=== PATIENT | female | born 2000 | race Caucasian/White ===

== ENCOUNTER 2019-01-29 09:54 | Observation (INO) ==
[2019-01-29] MEDS ORDERED: TORADOL IV ONE (11:32)
[2019-01-29 11:53] LABS: URINE SOURCE CLEAN CATCH
[2019-01-29 12:02] LABS: BASO# 0.02 X1000 (0.0-0.2); BASO% 0.3 % (0.0-0.8); EOS# 0.05 X1000 (0.0-0.7); EOS% 0.7 % (0.0-10.0); HEMATOCRIT 44.2 % (37.0-47.0); HEMOGLOBIN 14.2 g/dL (12.0-16.0); IMM GRAN# 0.03 X1000 (0.0-0.04); IMM GRAN% 0.4 % (0.0-0.5); LYMPH# 1.32 X1000 (1.2-3.4); LYMPH% 19.7 % (20.5-51.1); MCHC 32.1 g/dL (33-37); MONO# 0.77 X1000 (0.11-0.59); MONO% 11.5 % (1.7-9.3); MPV 8.7 FL (7.4-10.4); NEUT# 4.52 X1000 (1.4-6.5); NEUT% 67.4 % (42.2-75.2); PLT 306 X1000 (130-400); RBC 5.26 XMIL (4.2-5.4); RDW 12.9 % (11.5-14.5); WBC 6.71 X1000 (4.8-10.8)
[2019-01-29 12:18] LABS: BILIRUBIN URINE NEGATIVE (NEGATIVE); BLOOD URINE NEGATIVE (NEGATIVE); COLOR YELLOW; GLUCOSE URINE NEGATIVE (NEGATIVE); KETONE URINE NEGATIVE (NEGATIVE); LEUKOCYTES URINE NEGATIVE (NEGATIVE); NITRITE URINE NEGATIVE (NEGATIVE); PH URINE 6.5; PROTEIN URINE NEGATIVE (NEGATIVE); SP GRAVITY URINE 1.012; TURBIDITY URINE CLEAR (CLEAR); UROBILINOGEN URINE NORMAL (NORMAL)
[2019-01-29 12:28] LABS: AGAP 13; ALB/GLOB RATIO 1.5; ALBUMIN 4.6 g/dL (3.5-5.0); ALKALINE PHOSPHATASE 115 U/L (32-104); BUN 9 mg/dL (8-22); CALCIUM 9.5 mg/dL (8.8-10.2); CHLORIDE 97 mmol/L (98-107); COSMO 272; CREATININE 0.6 mg/dL (0.5-0.9); ESTIMATED GFR > 60; GLUCOSE 87 mg/dL (70-104); GOT 16 U/L (10-30); GPT 22 U/L (10-36); POTASSIUM 3.6 mmol/L (3.5-5.1); SODIUM 137 mmol/L (136-145); TCO2 27 mmol/L (25-35); TOTAL BILIRUBIN 0.59 mg/dL (0.20-1.00); TOTAL PROTEIN 7.6 g/dL (6.3-8.3)
[2019-01-29 12:45] LABS: UR EPITHELIAL CELLS <10 /HPF (<10); URINE BACTERIA NEGATIVE /HPF; URINE RBC <10 /HPF (<10); URINE WBC <10 /HPF (<10)
[2019-01-29 13:03] LABS: URINE CRYSTALS NONE SEEN
--- NOTE | 2019-01-29 13:44 | PROVIDER DOCUMENTATION ---
This chart was entered by Erica Freeman Scribe, acting as scribe for Lino Flower MD. HPI-Abdominal Pain/GI Problem - General Chief Complaint: Abdominal Pain Stated Complaint: UPPER ABD PAIN,HURTS TO BREATHE Time Seen by Provider: 01/29/19 10:29 Source: patient, family (mom) Allergies/Adverse Reactions: Patient Allergies Allergy/AdvReac Type Severity Reaction Status Date / Time ciprofloxacin [From Cipro] AdvReac RASH Verified 01/29/19 10:26 ciprofloxacin HCl * AdvReac RASH Verified 01/29/19 10:26 [From Cipro] Home Medications: Home Medication List Medication Instructions Recorded Confirmed Last Taken Type Amoxicillin/Pot Clavulanate 1 tab PO BID 01/29/19 01/29/19 01/29/19 History [Augmentin] Guaifen/Dextromethorphan/PE 1 tab PO TID PRN 01/29/19 01/29/19 01/29/19 History [Deconex Dmx 17.5-385-10 mg Tab] Olanzapine/Fluoxetine [Symbyax 1 cap PO DAILY 01/29/19 01/29/19 01/29/19 History 6/25 mg] - History of Present Illness-ABD Nature of Presenting Problems: 18yof presents to ED cc intermittent abdominal pain, nausea and diarrhea since yesterday. Mom is at bedside and reports herself started having diverticulitis at age 18 and is concerned that is what pt has. Pt does have hx of impaction. Pt is nontoxic and in no acute distress upon exam. Abdominal Pain Onset Location: reports: generalized abdomen Quality of Pain: reports: cramping Severity in ED: reports: mild, moderate Onset/Duration: reports: last night Timing: reports: still present Activities at Onset: reports: light activity Exposure to sick contacts?: No Modifying Factors: improves with: nothing Associated Symptoms: reports: diarrhea, nausea Last BM: this morning Similar Symptoms Previously?: No Recently seen or treated by another doctor?: No Review of Systems - Adult - REVIEW OF SYSTEMS - ADULT Constitutional: reports: see HPI. denies: chills, fever, fatique Eyes: reports: no symptoms reported Ears, Nose, Mouth & Throat: reports: no symptoms reported Cardiovascular: reports: no symptoms reported Respiratory: reports: no symptoms reported Gastrointestinal: reports: see HPI, abdominal pain, diarrhea, nausea. denies: vomiting Genitourinary: reports: see HPI. denies: dysuria, flank pain, hematuria Musculoskeletal: reports: no symptoms reported Integumentary: reports: no symptoms reported Neurological: reports: no symptoms reported Psychiatric: reports: no symptoms reported Endocrine: reports: no symptoms reported Hematologic/Lymphatic: reports: no symptoms reported Allergic/Immunologic: reports: no symptoms reported All Other Systems: Reviewed and Negative Past History - Adult - PAST MEDICAL HISTORY-ADULT Review of Records: reports: Nursing Assessment Review, Medications Reviewed, Social history reviewed & non-contributory. Major Childhood Illnesses: reports: denies history Cardiovascular: reports: denies history Respiratory: reports: denies history Gastrointestinal: reports: denies history Obstetrical/Gynecological: reports: denies history Genitourinary: reports: denies history Musculoskeletal: reports: denies history Neurological: reports: denies history Endocrine/Immune: reports: denies history Other Conditions: reports: denies history - IMMUNIZATION STATUS Childhood Immunizations: See Nurse Assessment Flu Vaccine: See Nurse Assessment - FAMILY HISTORY Family History: reviewed, not pertinent - SOCIAL HISTORY Smoking: denies Physical Exam-General - PHYSICAL EXAM-ADULT Initial Vital Signs Reviewed: Yes - CONSTITUTIONAL General Appearance: appears well, alert. negative: anxious, combative - EYES Eyes: PERRL/EOMI, pink conjunctivae - HEAD, EARS, NOSE, MOUTH & THROAT HENMT: normocephalic/atraumatic, moist mucous membranes. negative: angioedema - RESPIRATORY Respiratory: chest non-tender, lungs clear, normal breath sounds. negative: stridor - CARDIOVASCULAR Cardiovascular: normal peripheral pulses, regular rate, rhythm, no edema. negative: bradycardia, tachycardia - GASTROINTESTINAL (ABDOMEN) Abdominal Exam: normal bowel sounds, soft, no organomegaly, tenderness (increase d LLQ and LUQ). negative: distended - MUSCULOSKELETAL Back Exam: normal inspection, no CVA tenderness Extremity: normal inspection, normal capillary refill. negative: deformity - SKIN Integumentary: normal color. negative: diaphoresis, jaundice - PSYCHIATRIC Psych/Mental Status: normal mood/affect, oriented x 3. negative: anxious, disheveled Progress - PLAN OF CARE/RESULTS Progress/Plan/Lab Results: Vital Signs - 8 hr 01/29/19 10:10 Temperature 97.9 F Pulse Rate 117 H Respiratory Rate 18 Blood Pressure 129/85 O2 Sat by Pulse Oximetry 97 Bedside Urine ED: Urine Bedside Start: 01/29/19 11:30 Freq: Status: Active Protocol: Activity Type Activity Date Activity User E-Sign Co-Sign Detail Recorded Client Recorded Date Recorded By Document 01/29/19 11:30 [id number] 01/29/19 11:30 [id number] 01/29/19 11:30 Point of Care [Bedside Point of Care] -Lot # [id number] - Results Negative -Control Line Visible? Yes Orders Category Date Time Status CT ABD/PELVIS W/IV CONT ONLY [CT] Stat Exams 01/29/19 11:31 Ordered CBC WITH ELECTRONIC DIFF [HEME] Stat Lab 01/29/19 11:33 Ordered COMPREHENSIVE METABOLIC PANEL [CHEM] Stat Lab 01/29/19 11:33 Ordered UA NIMS W/REFLEX CULT [URINALYSIS] Stat Lab 01/29/19 11:33 Ordered Ketorolac [Toradol] Med 01/29/19 11:32 Discontinued 30 mg IV NOW ONE Result Diagrams: 01/29/19 11:22 01/29/19 11:22 - CONSULTS/PCP/HOSPITALIST Notification #1 *Consult/PCP/Hospitalist*: d/w Dr Benson Time Discussed: 14:22 Consult Disposition: Admit (advised, NPO, IVF's and Zofran) Departure - Departure Date of Disposition Decision: 01/29/19 Time of Disposition Decision: 14:38 DIAGNOSIS: Enteritis, Ileus, Intussusception of small bowel Disposition: ADMITTED INPATIENT 09 Certified Medical Emergency: Emergent Condition: Stable Additional Instructions: ED Follow Up Instructions: You have been treated by a care provider in the Emergency Department. These instructions are being provided to you so you can have an understanding of how to care for yourself upon discharge. Upon discharge from the Emergency Depart ment, you are responsible for making arrangements for follow-up care by a physician of your choice. Take all prescribed medications as directed. Return to the Emergency Department immediately for any new or worsening symptoms. You may call the Physician Referral phone number at [phone] to obtain a list of Physicians who are taking new patients. Referrals and Follow-Ups: None,PCP [Primary Care Provider] - - Critical Care Note This patient required my direct & personal management of CC.: No Attestation - Physician/ LEIDA Attestation Patient care was provided by Advanced Practice Provider:: No The physician spent face to face time with patient:: Yes Advanced Practice Provider documentation review:: Supervising physician onsite and consulted in the evaluation and care of this patient. The physician did have a face to face encounter with the patient. This chart was documented by the indicated scribe, (Erica Freeman Scribe) and accurately reflects the services I performed and decisions made by me, Lino Flower MD, as attested by the provider's signature.
--- NOTE | 2019-01-29 14:16 | Diag Imaging Result Doc PS360 ---
EXAM: CT ABD/PELVIS W/IV CONT ONLY INDICATION: Abd pain TECHNIQUE: This exam was performed using automated exposure control, adjustment of mA or kV according to patient size, and/or use of iterative reconstruction technique. COMPARISON: None. FINDINGS: There has been a prior cholecystectomy. The liver, spleen, pancreas, adrenal glands, kidneys, and urinary bladder are grossly unremarkable. The reproductive tract is unremarkable as imaged. There is evidence of a prior appendectomy. There are multiple fluid-filled loops of small bowel containing air-fluid levels and mild distention. These are nonspecific. Consider ileus, possibly related to enteritis. There does appear to be a small focal intussusception in the left upper quadrant on image 56 of series 3. No obvious leak mass is identified. These small focal intussusceptions are usually incidental and transient. Immediately distal to this focal intussusception, the small bowel is collapsed. However, there is still distention of several loops of small bowel in the lower abdomen distal to the intussusception. No free abdominal gas or free fluid is identified. IMPRESSION: 1.Several mildly distended loops of small bowel throughout the abdomen with air-fluid levels that are nonspecific. Consider ileus related to enteritis. 2.Focal intussusception involving a loop of small bowel in the left upper quadrant. Please see above discussion. Electronically signed by Errol Zhu 01/29/2019 2:14 PM
[2019-01-29] MEDS ORDERED: ZOFRAN IV ONE ×2 (14:36→17:20)
[2019-01-29] MEDS ORDERED: NS 1,000 ML IV ONE (14:36)
[2019-01-29] MEDS ORDERED: OFIRMEV 1000 MG/ISOTONIC SOLN 1,000 MG/100 ML BOTTLE IV PRN (18:34)
[2019-01-29] MEDS: LR 1,000 ML IV SCH (19:28)
[2019-01-29] MEDS: TORADOL IV PRN (19:28)
[2019-01-29] MEDS: ZOFRAN IV PRN (20:10)
--- NOTE | 2019-01-29 21:55 | HISTORY AND PHYSICAL ---
DATE: 01/29/2019 CHIEF COMPLAINT: Nausea with diarrhea. REASON FOR CONSULTATION: Enteritis and intussusception. HISTORY OF PRESENT ILLNESS: This 18-year-old female has a history of cholecystectomy and appendectomy, who presents with 24 to 48 hour history of diarrhea with nausea and decreased appetite. She has had some mild abdominal discomfort. 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 CT scan showed a focal intussusception with no evidence of compromise or obstruction, and some more dilated proximal loops distally. She denies any bleeding in her stools. No prior episodes. MEDICAL HISTORY: She has mood disorder. SURGICAL HISTORY: Appendectomy and cholecystectomy. SOCIAL HISTORY: She does smoke. She works at a daycare. Denies alcohol. She is here with her mother. FAMILY HISTORY: Reviewed. Some cancer noted in her grandfather. REVIEW OF SYSTEMS: A 10 point review of systems negative other than what is mentioned HPI. OBJECTIVE: General: She is afebrile, pulse 81, blood pressure 129/78, oxygen saturation 97%. General: She is alert, in no acute distress. HEENT: No scleral icterus. No cervical mass. Cardiovascular: Normal rate. Abdomen: Soft, nontender, nondistended. Integument: Warm and dry. Psychiatric: Appropriate affect. Neurologic: No gross deficits. Lymphatic: No cervical, axillary, or inguinal adenopathy. LABS: White count 6, hematocrit 44, platelets 306,000. Creatinine 0.6. LFTs are normal with a mild elevation in her alkaline phosphatase. I reviewed her CT scan. ASSESSMENT AND PLAN: A 18-year-old female with enteritis, most likely viral, very mild distention of small bowel loops, and I suspect an incidental focal intussusception in the more proximal small bowel, left upper quadrant. I do not see evidence of obstruction, no mass like lesion, no ischemia. Her exam is benign. We will follow this. If she has recurrent episodes, she may ultimately warrant evaluation of a possible lead point for the intussusception, but I suspect that this is incidentally noted in the setting of a viral enteritis. We will hydrate her. She is already feeling better and will keep her on antiemetics and will follow along. cc: Juma Benson MD
[2019-01-30] MEDS: TORADOL IV PRN (03:23)
[2019-01-30] MEDS: LR 1,000 ML IV SCH (03:24)
[2019-01-30] MEDS: ZOFRAN IV PRN (06:59)
[2019-01-30 07:45] VITALS: BP 119/75
--- NOTE | 2019-01-30 22:09 | GENERAL SURGERY PROGRESS NOTE ---
DATE: 01/30/2019 ADMITTING DIAGNOSES: 1. Gastroenteritis. 2. Small-bowel intussusception. DISCHARGE DIAGNOSES: 1. Gastroenteritis. 2. Small-bowel intussusception. PROCEDURE PERFORMED: None. 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 She developed diarrhea with vague abdominal discomfort. This was nonbloody diarrhea and nausea over the last 48 hours. She came the ER, where CT scan was obtained that suggested enteritis based off the mildly dilated loops in the distal small bowel with air-fluid levels. There was also a focal intussusception that was nonobstructive with no evidence of ischemia in the upper left quadrant of her abdomen. HOSPITAL COURSE: She was seen in the emergency department and was admitted for observation. We kept her on IV fluids, NPO with antiemetics, and she felt much better. She had no pain. Her vital signs were stable. She had a test in the emergency department that was clear and her urinalysis was negative. Her diet was advanced. She tolerated this well. She is felt safe for discharge. She will follow up with me in a week. If she has persistent symptoms, we will re- scan. I suspect that this is an enteritis, most likely viral, with an incidentally-noted very small focal intussusception of the small bowel that most likely has resolved at this juncture. If she has recurrent episodes, we will repeat a CT scan to ensure that there is no ongoing intussusception, and if there is, she may ultimately warrant exploration. I discussed with the patient. She does have a history of cholecystectomy and appendectomy as well in the past. Discharge instructions were given in written and verbal format. MEDICATIONS: None. cc: Juma Benson MD
== END 2019-01-30 09:13 | disposition home or self-care (01) ==
LOC: ED 09:54 → 4N 09:54
PROVIDERS: ADMIT Surgery; ATTEND Surgery